=== PATIENT | male | born 1955 | race Caucasian/White ===

== ENCOUNTER → 2020-04-23 | Outpatient (CLI) | payer MEDICARE ==
[~2020-04-23] MED LIST: AMLO-211 PO; LEVE500T53 PO; METO25TA35 PO; REGADENOSON 0.4 MG/5 ML SYRINGE ONE; SILD25TA PO
== END | disposition home or self-care (01) ==
LOC: CFH 12:17
PROVIDERS: ATTEND Internal Medicine Cardiovascular Disease
DX: I10 Essential (primary) hypertension (principal); I25.10 Atherosclerotic heart disease of native coronary artery without angina pectoris; Z95.2 Presence of prosthetic heart valve
CPT/HCPCS: 78452; 93017; A9502; J2785

== ENCOUNTER 2020-05-23 16:02 | Emergency (ER) | payer MEDICARE ==
[~2020-05-23] VITALS: Ht 177.8 cm; Wt 88.2 kg
[~2020-05-23 16:02] MED LIST changes: -REGADENOSON 0.4 MG/5 ML SYRINGE ONE
[2020-05-23 16:06] VITALS: BP 151/80
== END 2020-05-23 16:48 | disposition home or self-care (01) ==
LOC: ED 16:30
DX: S01.81XD Laceration without foreign body of other part of head, subsequent encounter (principal); I10 Essential (primary) hypertension; X58.XXXD Exposure to other specified factors, subsequent encounter
CPT/HCPCS: 99281; 99285

== ENCOUNTER 2020-06-18 12:28 | Observation (INO) | payer MEDICARE ==
[~2020-06-18] VITALS: Ht 177.8 cm; Wt 90.8 kg
--- NOTE | 2020-06-18 12:31 | NUR ---
ERMD AT BEDSIDE FOR EVALUATION.
--- NOTE | 2020-06-18 12:44 | NUR ---
PATIENT BIB [facility] WITH CHIEF C/O GLF THIS MORNING. PER EMS PATIENT'S SON FOUND PATIENT ON THE FLOOR SUPINE IN THE BATHROOM WITH SEIZURE LIKE ACTIVITY PER SON. PER EMS PATIENT HAD A GLF IN JANUARY WITH BRAIN BLEED. PATIENT NOTED TO HAVE ORAL TRAUMA AND LEFT HAND TRAUMA BY EMS. EMS REPORTS [facility] OF 10, 18 GAUGE IV STARTED RIGHT HAND, VITALS STABLE EN ROUTE PER EMS. PATIENT FOLLOWS COMMANDS APPROPRIATELY, PATIENT BECOMING MORE ALERT THORUGH EXAM, CAN STATES HIS NAME AND , DOES NOT KNOW WHERE HE IS OR WHAT HAPPENED. SON AT BEDSIDE, SEIZURE PRECAUTIONS IN PLACE, CALL LIGHT WITHIN REACH.
[2020-06-18] MEDS ORDERED: ATOR-2 PO (12:54)
[2020-06-18] MEDS ORDERED: CARB1TAB33 PO (12:54)
[2020-06-18] MEDS ORDERED: SODIUM CHLORIDE 0.9% 1,000ML IVBOLUS ONE (13:00)
[2020-06-18 13:03] LABS: BASOPHILS % (AUTO) 1 % (0-1); EOSINOPHILS % (AUTO) 2 % (1-7); LYMPHOCYTES % (AUTO) 39 % (22-44); MEAN CORPUSCULAR HEMOGLOBIN 31.2 pg (27.5-34.5); MEAN CORPUSCULAR HGB CONC 33.9 g/dL (33.2-36.2); MEAN PLATELET VOLUME 7.6 fL (7.4-10.4); MONOCYTES % (AUTO) 8 % (2-9); NEUTROPHILS % (AUTO) 51 % (42-75); PLATELET COUNT 230 x10^3/uL (130-400); RED BLOOD COUNT 5.37 x10^6/uL (4.38-5.82)
--- NOTE | 2020-06-18 13:03 | NUR ---
PATIENT TO CT SCAN.
[2020-06-18 13:04] LABS: MD NO
[2020-06-18 13:05] LABS: INTERNATIONAL NORMALIZED RATIO 1.1 (0.93-1.1); PROTHROMBIN TIME 11.6 Seconds (9.6-11.5)
[2020-06-18 13:08] LABS: ANION GAP 13 mmol/L (5-15); CALCIUM 8.9 mg/dL (8.5-10.1); CHLORIDE 104 mmol/L (98-107)
[2020-06-18 13:14] LABS: ALANINE AMINOTRANSFERASE 33 U/L (12-78); ALKALINE PHOSPHATASE 110 U/L (45-117); BILIRUBIN,TOTAL 0.8 mg/dL (0.2-1.0); CREATININE 1.33 mg/dL (0.7-1.3); TOTAL PROTEIN 7.5 g/dL (6.4-8.2); TROPONIN I < 0.015 ng/mL (0.000-0.045)
--- NOTE | 2020-06-18 13:39 | NUR ---
ER PROVIDER AT BEDSIDE TO DISCUSS POC.
--- NOTE | 2020-06-18 13:41 | NUR ---
PATIENT PROVIDED URINAL FOR URINE SAMPLE.
--- NOTE | 2020-06-18 13:46 | NUR ---
URINE SAMPLE COLLECTED AND SENT TO LAB.
[2020-06-18 14:09] LABS: MICROSCOPIC INDICATED
--- NOTE | 2020-06-18 14:23 | NUR ---
PATIENT MORE ALERT, ABLE TO ANSWER ALL ORIENTATION QUESTIONS AT THIS TIME. SON AT BEDSIDE, NADN, VSS, SEIZURE PRECAUTIONS IN PLACE, CALL LIGHT WITHIN REACH.
--- NOTE | 2020-06-18 14:37 | NUR ---
SM AT BEDSIDE FOR ADMISSION EVALUATION.
[2020-06-18] MEDS ORDERED: LEVETIRACETAM 500 MG TABLET PO ONE (15:11)
[2020-06-18] MEDS ORDERED: LEVETIRACETAM 500 MG TABLET ONE (15:15)
[2020-06-18] MEDS ORDERED: LABETALOL 5MG/ML, 20ML IVPush PRN (15:30)
[2020-06-18] MEDS ORDERED: POTASSIUM CHLORIDE 20 MEQ TAB.ER.PRT PO ONE (15:30)
[2020-06-18] MEDS ORDERED: IBUPROFEN 600 MG TABLET PO PRN (15:30)
[2020-06-18] MEDS ORDERED: POTASSIUM CHLORIDE 40 MEQ in SODIUM CHLORIDE 0.9% 500 ML IV ONE (15:30)
[2020-06-18] MEDS ORDERED: ONDANSETRON ODT 4 MG PO PRN (15:30)
[2020-06-18] MEDS ORDERED: ONDANSETRON 2MG/ML, 2ML IVPush PRN (15:30)
[2020-06-18] MEDS ORDERED: ENOXAPARIN 40 MG/0.4 ML SQ SCH (15:30)
[2020-06-18] MEDS ORDERED: ACETAMINOPHEN 325 MG TABLET PO PRN (15:30)
--- NOTE | 2020-06-18 15:35 | NUR ---
MEDICATIONS REQUESTED FROM PHARMACY.
--- NOTE | 2020-06-18 15:45 | NUR ---
LATE ENTRY DUE TO PATIENT CARE: PATIENT REQUESTED TO GO TO BATHROOM, PATIENT SOILED, UNAWARE HE HAD BM, CLEANED PATIENT UP, PATIENT TOLERATED WELL, SON AT BEDSIDE, SEIZURE PRECAUTIONS IN PLACE, CALL LIGHT WITHIN REACH.
[2020-06-18] MEDS ORDERED: POTASSIUM CHLORIDE 20 MEQ TAB.ER.PRT ONE (16:43)
[2020-06-18] MEDS ORDERED: ENOXAPARIN 40 MG/0.4 ML ONE (16:43)
[2020-06-18] MEDS: CARBIDOPA/LEVODOPA 10 MG/100 MG TABLET PO SCH (16:46)
--- NOTE | 2020-06-18 16:54 | NUR ---
PATIENT MEDICATED PER [facility], NADN, VSS, SEIZURE PRECAUTIONS IN PLACE, CALL LIGHT WITHIN REACH. DINNER TRAY ORDERED.
--- NOTE | 2020-06-18 17:34 | NUR ---
DINNER TRAY PROVIDED.
--- NOTE | 2020-06-18 18:48 | NUR ---
PATIENT SITTING IN [place], VSS, DONE WITH DINNER, SEIZURE PRECAUTIONS IN PLACE, CALL LIGHT WITHIN REACH. PATIENT MORE TALKATIVE AND ALERT THAN HE WAS ON ARRIVAL. WAITING FOR BED ASSIGNMENT.
--- NOTE | 2020-06-18 19:14 | NUR ---
1ST ATTEMPT TO CALL REPORT.
--- NOTE | 2020-06-18 19:41 | NUR ---
REPORT GIVEN TO DANNY ANDERSON ON TELEMETRY FOR TRANSFER OF PATIENT CARE.
--- NOTE | 2020-06-18 19:51 | NUR ---
PATIENT TRANSFERRED TO CARDIAC TELEMETRY IN STABLE CONDITION VIA GURNEY WITH DISASSEMBLER PRODUCT. ALL PATIENT BELONGINGS GATHERED AND TAKEN UP TO FLOOR WITH PATIENT.
[2020-06-18 20:08] VITALS: BP 129/102
[2020-06-18] MEDS: AMOXICILLIN/CLAV 875-125MG TABLET PO SCH (20:20)
[2020-06-18] MEDS: METOPROLOL TARTRATE 25 MG TAB PO SCH (20:20)
[2020-06-18] MEDS: LEVETIRACETAM 500 MG TABLET PO SCH (20:20)
[2020-06-19 00:14] VITALS: BP 156/95
[2020-06-19] MEDS: CARBIDOPA/LEVODOPA 10 MG/100 MG TABLET PO SCH ×2 (00:49→10:05)
[2020-06-19 07:18] VITALS: BP 147/88
[2020-06-19] MEDS ORDERED: AMLODIPINE 10 MG TAB PO SCH (09:00)
[2020-06-19] MEDS ORDERED: ATORVASTATIN 80 MG TABLET PO SCH (09:00)
[2020-06-19] MEDS: AMOXICILLIN/CLAV 875-125MG TABLET PO SCH (10:04)
[2020-06-19] MEDS: LEVETIRACETAM 500 MG TABLET PO SCH (10:04)
[2020-06-19] MEDS: METOPROLOL TARTRATE 25 MG TAB PO SCH (10:05)
[2020-06-19] MEDS ORDERED: LEVE500T53 PO (10:44)
== END 2020-06-19 12:15 | disposition home or self-care (01) ==
LOC: ED 13:54 → EDIP 14:15 → INTOOBSV 14:15 → 5SO 19:50 → DCLOUNGE 06-19 12:03
PROVIDERS: ADMIT Family Medicine; ATTEND Family Medicine
DX: G43.909 Migraine, unspecified, not intractable, without status migrainosus (principal); G20 Parkinson's disease; J32.9 Chronic sinusitis, unspecified; S06.5X9A Traumatic subdural hemorrhage with loss of consciousness of unspecified duration, initial encounter; E87.6 Hypokalemia; I12.9 Hypertensive chronic kidney disease with stage 1 through stage 4 chronic kidney disease, or unspecified chronic kidney disease; N18.9 Chronic kidney disease, unspecified; M99.07 Segmental and somatic dysfunction of upper extremity; Z86.79 Personal history of other diseases of the circulatory system; Z79.899 Other long term (current) drug therapy; Z91.14 Patient's other noncompliance with medication regimen; W18.30XA Fall on same level, unspecified, initial encounter; Y93.89 Activity, other specified; Y92.89 Other specified places as the place of occurrence of the external cause
CPT/HCPCS: 36415; 70450; 80053; 81001; 82140; 84484; 85025; 85610; 93005; 96365; 96366; 96372; 97161; 97165; 99285; G0378; J1650; J3480; J7030; J7040

== ENCOUNTER 2020-07-29 16:46 | Emergency (ER) | payer MEDICARE ==
[~2020-07-29] VITALS: Ht 177.8 cm; Wt 88.3 kg
[~2020-07-29 16:46] MED LIST changes: +ATOR-2 PO; +CARB1TAB33 PO
--- NOTE | 2020-07-29 16:55 | NUR ---
PT HAD 1 MIN SEIZURE. WITNESS BY FAMILY. NO INJURIES, BIT TONGUE, BUT NOT BLEEDING. HX OF TBI. SEIZURES STARTED IN JAN 2020. NO CHEST PAIN, NO VISION CHANGES OR HEADACHE. PT A&OX3
--- NOTE | 2020-07-29 16:57 | NUR ---
SEIZURE PRECAUTIONS IN PLACE, PADS ON BED RAILS, CALL LIGHT IN PLACE
[2020-07-29] MEDS ORDERED: LEVETIRACETAM 1,000 MG in SODIUM CHLORIDE 0.9% 100 ML IV ONE (17:30)
[2020-07-29] MEDS ORDERED: SODIUM CHLORIDE FLUSH 10ML SYR IVF ONE (17:30)
[2020-07-29 17:31] LABS: BASOPHILS % (AUTO) 1 % (0-1); EOSINOPHILS % (AUTO) 1 % (1-7); LYMPHOCYTES % (AUTO) 16 % (22-44); MD NO; MEAN CORPUSCULAR HGB CONC 34.1 g/dL (33.2-36.2); MEAN PLATELET VOLUME 7.6 fL (7.4-10.4); MONOCYTES % (AUTO) 8 % (2-9); NEUTROPHILS % (AUTO) 73 % (42-75); PLATELET COUNT 216 x10^3/uL (130-400); RED BLOOD COUNT 5.11 x10^6/uL (4.38-5.82); RED CELL DISTRIBUTION WIDTH 14.1 % (9.4-14.8)
[2020-07-29 17:47] LABS: ALBUMIN 3.8 g/dL (3.4-5.0); ANION GAP 9 mmol/L (5-15); CALCIUM 8.5 mg/dL (8.5-10.1); CHLORIDE 107 mmol/L (98-107); CREATININE 1.28 mg/dL (0.7-1.3)
--- NOTE | 2020-07-29 18:14 | NUR ---
PT RESTNG, KEPPRA INFUSION COMPLETE. VSS
--- NOTE | 2020-07-29 18:39 | NUR ---
PT GIVEN URINAL TO USE.
--- NOTE | 2020-07-29 18:47 | NUR ---
REPORT TO ROMIE
--- NOTE | 2020-07-29 18:47 | NUR ---
REPORT RECIEVED FROM DANNY BALTAZAR. PT RESTING IN [facility] IN PLACE, NO NEEDS AT THIS TIME
[2020-07-29 20:00] VITALS: BP 131/74
== END 2020-07-29 20:21 | disposition home or self-care (01) ==
LOC: ED 18:25
DX: G40.309 Generalized idiopathic epilepsy and epileptic syndromes, not intractable, without status epilepticus (principal); R79.1 Abnormal coagulation profile; R94.31 Abnormal electrocardiogram [ECG] [EKG]; I10 Essential (primary) hypertension; E78.5 Hyperlipidemia, unspecified
CPT/HCPCS: 36415; 80048; 82040; 85025; 93005; 96365; 99284; J1953; 99285

== ENCOUNTER → 2020-08-14 | Outpatient (CLI) | payer MEDICARE | END | disposition home or self-care (01) | LOC: STAR 09:44 | PROVIDERS: ATTEND Internal Medicine Gastroenterology | DX: Z01.812 Encounter for preprocedural laboratory examination (principal); Z20.822 Contact with and (suspected) exposure to COVID-19; Z12.11 Encounter for screening for malignant neoplasm of colon; R94.31 Abnormal electrocardiogram [ECG] [EKG] | CPT/HCPCS: 93005; U0003 ==

== ENCOUNTER 2020-08-20 10:58 | Day surgery (SDC) | payer MEDICARE ==
[~2020-08-20] VITALS: Ht 177.8 cm; Wt 85.4 kg
[2020-08-20] MEDS ORDERED: CARV6.2512 PO (11:17)
[2020-08-20] MEDS ORDERED: CHLORHEXIDINE 15 ML UDC ONE (11:21)
[2020-08-20] MEDS ORDERED: LACTATED RINGERS 1,000 ML IV SCH (11:30)
[2020-08-20] MEDS ORDERED: CHLORHEXIDINE 15 ML UDC MM ONE (11:30)
[2020-08-20 11:41] VITALS: BP 118/69
[2020-08-20] MEDS ORDERED: FENTANYL PF 100 MCG/2ML ONE (12:30)
[2020-08-20] MEDS ORDERED: MIDAZOLAM 1 MG/ML, 2ML ONE (12:31)
[2020-08-20] MEDS ORDERED: PROPOFOL 10 MG/ML, 20ML ONE (12:52)
[2020-08-20] MEDS ORDERED: OXYcodone 5 MG/5 ML ORAL.SOL UDC PO PRN (13:30)
[2020-08-20] MEDS ORDERED: morphine SULFATE 10 MG/ML, 1ML IVPush PRN (13:30)
[2020-08-20] MEDS ORDERED: LABETALOL 5MG/ML, 20ML IV PRN (13:30)
[2020-08-20] MEDS ORDERED: ONDANSETRON 2MG/ML, 2ML IVPush PRN (13:30)
[2020-08-20] MEDS ORDERED: hydrALAzine 20 MG/ML, 1ML IV PRN (13:30)
[2020-08-20] MEDS ORDERED: FENTANYL PF 100 MCG/2ML IV PRN (13:30)
[2020-08-20] MEDS ORDERED: PROMETHAZINE 25 MG/ML, 1ML IVPush PRN (13:30)
== END 2020-08-20 15:00 | disposition home or self-care (01) ==
LOC: OUT 10:58
PROVIDERS: ATTEND Internal Medicine Gastroenterology
DX: Z12.11 Encounter for screening for malignant neoplasm of colon (principal); K63.5 Polyp of colon; K64.8 Other hemorrhoids; G40.909 Epilepsy, unspecified, not intractable, without status epilepticus; I12.9 Hypertensive chronic kidney disease with stage 1 through stage 4 chronic kidney disease, or unspecified chronic kidney disease; N18.30 Chronic kidney disease, stage 3 unspecified; E78.00 Pure hypercholesterolemia, unspecified; F17.210 Nicotine dependence, cigarettes, uncomplicated; Z95.5 Presence of coronary angioplasty implant and graft; Z72.89 Other problems related to lifestyle; Z79.899 Other long term (current) drug therapy; Z82.49 Family history of ischemic heart disease and other diseases of the circulatory system; Z98.890 Other specified postprocedural states
CPT/HCPCS: 45380; 88305; J2250; J2704; J3010; J7120